=== PATIENT | male | born 1945 | race Caucasian/White ===

== ENCOUNTER 2017-01-30 06:44 | Inpatient (IN) | payer MEDICARE, OTHER ==
[2017-01-23 10:56] LABS: BASOPHILS 0.9 %; BASOPHILS ABSOLUTE 0.06 10/3/uL (0.0-0.16); EOSINOPHILS 4.1 %; EOSINOPHILS ABSOLUTE 0.27 10/3/uL (0.0-0.53); HEMATOCRIT 38.3 % (40.0-51.0); HEMOGLOBIN 12.7 g/dL (13.6-17.8); IMMATURE GRANULOCYTES 0.3 %; IMMATURE GRANULOCYTES ABSOLUTE 0.02 10/3/uL (0.0-0.11); LYMPHOCYTES 23.5 %; LYMPHOCYTES ABSOLUTE 1.55 10/3/uL (0.67-4.30); MEAN CORPUS HGB CONC 33.2 g/dL (32.0-36.0); MEAN CORPUSCULAR HEMOGLOB 29.1 pg (26.0-34.0); MEAN CORPUSCULAR VOLUME 87.8 fL (80-100); MEAN PLATELET VOLUME 9.4 fL (9.2-13.0); MONOCYTES 11.4 %; MONOCYTES ABSOLUTE 0.75 10/3/uL (0.21-1.20); NEUTROPHILS 59.8 %; NEUTROPHILS ABSOLUTE 3.94 10/3/uL (2.02-8.40); PLATELET COUNT 281 10/3/uL (150-400); RBC DISTRIBUTION WIDTH 14.1 % (12.0-16.0); RED CELL COUNT 4.36 10/6/uL (4.7-6.1); WHITE BLOOD CELLS 6.6 10/3/uL (4.5-10.5)
[2017-01-23 10:57] LABS: MANUAL DIFF NO %
[2017-01-23 11:02] LABS: INTERNATIONAL NORMAL RATI 1.1 UNITS (-); PARTIAL THROMBO TIME 30.5 SEC (22.5-37.2)
[2017-01-23 11:07] LABS: BUN (BLOOD UREA NITROGEN) 12 MG/DL (6-23); CALCIUM, SERUM 8.7 MG/DL (8.5-10.4); CHLORIDE, SERUM 108 MMOL/L (96-112); CO2 (CARBON DIOXIDE) 28 MMOL/L (24-34); CREATININE 1.33 MG/DL (0.70-1.30); GFR AFRICAN AMERICAN 62 ML/MIN (>=60); GFR NON AFRICAN AMERICAN 54 ML/MIN (>=60); GLUCOSE, SERUM 89 MG/DL (60-99); POTASSIUM, SERUM 3.5 MMOL/L (3.5-5.3); SODIUM, SERUM 143 MMOL/L (135-148)
[~2017-01-30] VITALS: Ht 170.2 cm; Wt 87.6 kg
--- NOTE | ~2017-01-30 | PREOPHP ---
PreOp History and Physical [facility] [id number] [place]. [address] NAME: MEL MINOR : 47 STATUS : ADM IN PAT#: [id number] AGE: 71 ADM/REG DATE : 01/30/17 MR#: [id number] REPORT SERV DATE: 01/30/17 DICTATED BY: MIKE NG DATE: 01/27/17 REPORT STATUS : Draft TRANSCRIBED BY: ESTEFANIA DATE: 01/27/17 CHIEF COMPLAINT: Adenocarcinoma of the prostate clinical stage T1c, Lisset score 4+3 equals 7, maximum PSA 8.9. HISTORY OF PRESENT ILLNESS: Mr. Minor is a 71-year-old male with recently diagnosed with adenocarcinoma of the prostate. An elevated PSA led to the biopsy. Biopsy revealed Packwood score of 4+3 from the right mid, right base, left base, right apex. Different treatment options regarding the management of prostate cancer were proposed to the patient. He decided to proceed with laparoscopic robot-assisted radical prostatectomy and bilateral pelvic node sampling. The patient had a CT scan of the abdomen and pelvis showing a questionably enlarged right external iliac lymph node. He has mild lower urinary tract symptoms, obstructive voiding symptoms, and erectile dysfunction. PAST MEDICAL HISTORY: Generally negative. PAST SURGICAL HISTORY: EGD with dilation of esophagus. FAMILY HISTORY: Negative for prostate cancer. MEDICATIONS: Tamsulosin. ALLERGIES: NO KNOWN DRUG ALLERGIES. SOCIAL HISTORY: He uses smokeless tobacco daily. He denies alcohol use. He denies drug use. REVIEW OF SYSTEMS: Has some obstructive voiding symptoms and erectile dysfunction. PHYSICAL EXAMINATION: GENERAL: Shows a well-developed, well-nourished white male, in no acute distress. He has a BMI of 29. VITAL SIGNS: He is afebrile. His vital signs are stable. HEENT: He has good cognitive function. His sclerae are anicteric. NECK: Supple. LUNGS: Clear. HEART: Regular rate and rhythm. ABDOMEN: Soft, nontender. No palpable abdominal masses. No inguinal hernia. GENITOURINARY: Penis normal. Testes descended. No testicular masses. Prostate is large but smooth. No nodules. EXTREMITIES: Lower extremities show no deformities. LYMPH: No enlarged lymph nodes palpable. IMPRESSION: Adenocarcinoma of the prostate, clinical stage T1c, Packwood score 4+3=7, maximum PSA of 8.9, questionable right external iliac lymph node enlargement. PLAN: Laparoscopic robot-assisted radical prostatectomy. Probably, sample the lymph nodes PreOp History and Physical [address] [address] NAME: MEL MINOR : 46 STATUS : ADM IN PAT#: [id number] AGE: 71 ADM/REG DATE : 01/30/17 MR#: [id number] REPORT SERV DATE: 01/30/17 DICTATED BY: MIKE NG DATE: 01/27/17 REPORT STATUS : Draft TRANSCRIBED BY: ESTEFANIA DATE: 01/27/17 first, and if they are positive, I have discussed this with the patient abandoning the prostatectomy in favor of other treatment modalities. If they are negative, then we will proceed with the prostatectomy. The patient consents to proceed. Potential complications of bleeding, infection, urinary incontinence, bladder neck obstruction, loss of ejaculate, erectile dysfunction, and injury to adjacent structures such as bladder, ureters, rectum, colon, intestine, nerves, as well as bowel obstruction complications have all been explained to the patient. He has both manually and verbally consented to proceed. BEAU/ESTEFANIA Mike Ng M.D. / [id number] CC: Mike Ng M.D.
--- NOTE | ~2017-01-30 | OP ---
Record Of Operation [facility] [address] [place]. [address] NAME: MEL MINOR : 47 STATUS : ADM IN PAT#: [id number] AGE: 71 ADM/REG DATE : 01/30/17 MR#: [id number] REPORT SERV DATE: 01/30/17 DICTATED BY: MIKE NG DATE: 01/30/17 REPORT STATUS : Draft TRANSCRIBED BY: MODL DATE: 01/30/17 DATE OF PROCEDURE: 01/30/2017 PREOPERATIVE DIAGNOSIS: Adenocarcinoma of the prostate, clinical stage T1c, [place] score 3+4=7, maximum PSA 8.9. POSTOPERATIVE DIAGNOSIS: Adenocarcinoma of the prostate, clinical stage T1c, Lisset score 3+4=7, maximum PSA 8.9. PROCEDURES: Laparoscopic robot-assisted radical prostatectomy, bilateral pelvic node sampling. ANESTHESIA: General. DONOR RELATIONS MANAGER: Bud Fisher. ESTIMATED BLOOD LOSS: 150 mL. FLUID REPLACEMENT: 3 L of crystalloid. DRAINS: 16-Panamanian Coude style catheter per urethra, with 12 mL of sterile water was inflated in the balloon, and a 15 mm Luis Armando drain in prevesical space. INDICATION: Cory is a 71-year-old male, recently diagnosed with prostate cancer. TECHNIQUE: The patient was identified, brought to the operating room, administered general anesthetic agent by the Anesthesia Service and intubated. He was positioned in dorsal lithotomy position. He was appropriately padded and secured to the table. The abdomen was previously been clipped. The entire abdomen, penis, groin, scrotum, perineum were prepped and draped in usual sterile fashion. I attempted to place a 16-Panamanian Ng catheter. I met resistance about the level of the bladder neck. I placed a 16-Panamanian coude style catheter, without difficulty. All laparoscopic port sites were first infiltrated with 0.5% Marcaine plain. A 3 cm skin incision was made above the umbilicus and carried down to the rectus fascia. Holding sutures were placed in the rectus fascia and a transverse incision was made. The underlying peritoneum was identified and opened sharply, and a balloon trocar was placed into the peritoneal space. A pneumoperitoneum was created by insufflating carbon dioxide. The abdominal pressure were raised to 15 mmHg and held there through the entire case until otherwise specified. The patient was placed in steep Trendelenburg. Three robot arm ports and two educational assistant teacher ports were placed under direct laparoscopic vision. There was adhesion between the cecum and the right lower quadrant abdominal wall. This was taken down sharply. The da Ke robot was brought to the table and mated to the ports. I took down some adhesions between the sigmoid colon and left pelvic sidewall. I then opened the cul-de-sac to expose the seminal structures. The left and right vasa deferentia Record Of Operation [facility] [address] [facility]. [address] NAME: MEL MINOR : 47 STATUS : ADM IN PAT#: [id number] AGE: 71 ADM/REG DATE : 01/30/17 MR#: [id number] REPORT SERV DATE: 01/30/17 DICTATED BY: MIKE NG DATE: 01/30/17 REPORT STATUS : Draft TRANSCRIBED BY: ESTEFANIA DATE: 01/30/17 were clipped proximally and transected distally. The left and right seminal vesicles were dissected out. Denonvilliers fascia was opened sharply and the rectum was swept off the undersurface of the prostate and toward the neurovascular bundles out to the apices bilaterally. I opened the peritoneum just lateral to the median umbilical ligaments on each side from the umbilicus down to the vasa deferentia. The obliterated umbilical ligaments and the umbilicus were divided near the umbilicus. The patient had enlarged right external iliac lymph nodes on a staging CT scan. I then performed a right external iliac and obturator lymph node dissection. Locking clips and metallic clips were used for lymphostasis and hemostasis. I collected the node packet and sent it off to Pathology. Frozen section analysis revealed no cancer in the node packet. I then continued on with the prostatectomy. The endopelvic fascia was pierced sharply at the prostatovesical junction. It is opened all the way out to the puboprostatic ligaments bilaterally. Attachments of the striated sphincter were taken off the apex of the prostate sharply. Dorsal venous complex was isolated and secured with laparoscopic CLAUDINE stapling device and oversewn with 3-0 PDS. The neurovascular bundles were mobilized off the apex of the prostate and carried posteriorly back to the posterior pedicles bilaterally. I switched to 30-degree down lens and developed a plane between the bladder neck the prostate. I opened the anterior bladder neck and elevated the Ng catheter. The patient had a large lobulated median lobe. It was carefully excised out at the inside the bladder, being careful to avoid the ureteral orifices. I then carried my dissection down and exposed the previously dissected out seminal structures. The posterior pedicles were secured with locking clips and divided. The prostate was now mobile all the way out to the apex. The last attachments of the striated sphincter were taken off the apex of the prostate. The urethra was divided sharply. The posterior striated sphincter was divided. The specimen was inspected, appeared intact, and placed in specimen retrieval bag, and held for later retrieval. I reconstruct the bladder neck with horizontal mattress sutures of 3-0 Monocryl at the 3 o'clock and 9 o'clock position. I then lowered the abdominal pressure down to 7 mmHg. Fastidious hemostasis was achieved. This pressure was kept down there for 20 minutes. I performed posterior reconstruction in two layers with 3-0 V-Loc. I then did a modified van Velthoven vesicourethral anastomosis with 3-0 V-Loc. When the anastomosis was completed, I pushed the 16-Panamanian Coude catheter all the way into the bladder. The bladder was filled with 240 mL of saline. There was some extravasation, but not from the anastomosis. The bladder was then drained and 12 mL of sterile water were inflated in catheter balloon. I then did a left pelvic lymph node dissection. The external iliac, obturator, and some of the internal iliac lymph nodes were sampled. Locking clips and metallic clips were used for lymphostasis and hemostasis. There was an arterial bleed that had to be clipped. Record Of Operation [facility] [id number] [facility]. [address] NAME: MEL MINOR : 47 STATUS : ADM IN PAT#: [id number] AGE: 71 ADM/REG DATE : 01/30/17 MR#: [id number] REPORT SERV DATE: 01/30/17 DICTATED BY: MIKE NG DATE: 01/30/17 REPORT STATUS : Draft TRANSCRIBED BY: MODL DATE: 01/30/17 I lowered the abdominal pressure one more time. I irrigated the pelvis copiously. Fastidious hemostasis was achieved. The instruments were taken out of the third robot arm port. A 15 mm Luis Armando drain was placed through that port and left in the prevesical space. The port was removed. The drain was sutured to skin with 2-0 Prolene. I undocked the da Ke robot. I transferred the string of the specimen bag out through the umbilical port. The educational assistant teacher 12 mm port was removed and the fascia there was closed with a Jarrett-Kay endoscopic closure system. The patient was taken out of Trendelenburg. All the ports were removed under low pressure. No port site bleeding was noted. I extended my fascial incision by 1 cm in each direction above the umbilicus. I then delivered the specimens out through the wound. I closed the fascia with [id number] Vicryl sutures. The subcutaneous tissue of all ports were irrigated copiously and the subcutaneous tissue of the larger ports were closed with 3-0 Vicryl. The skin of all ports were closed with 4-0 Monocryl. Dressings were applied. The catheter was secured. The patient was awakened and taken to the recovery unit in a stable and satisfactory condition. PF/MODL Mike Ng M.D. / [id number] CC: Mike Ng M.D.
[~2017-01-30 06:44] MED LIST: ENDOCET1 TA3 PO; FLOMAX4 PO; NAP500 PO
[2017-01-31 05:05] LABS: HEMOGLOBIN 11.2 g/dL (13.6-17.8)
[2017-01-31 05:06] LABS: HEMATOCRIT 33.5 % (40.0-51.0)
[2017-01-31 05:14] LABS: BUN (BLOOD UREA NITROGEN) 10 MG/DL (6-23); CALCIUM, SERUM 8.1 MG/DL (8.5-10.4); CHLORIDE, SERUM 108 MMOL/L (96-112); CO2 (CARBON DIOXIDE) 30 MMOL/L (24-34); CREATININE 1.32 MG/DL (0.70-1.30); GFR AFRICAN AMERICAN 63 ML/MIN (>=60); GFR NON AFRICAN AMERICAN 54 ML/MIN (>=60); POTASSIUM, SERUM 4.4 MMOL/L (3.5-5.3); SODIUM, SERUM 141 MMOL/L (135-148)
[2017-01-31 05:15] LABS: GLUCOSE, SERUM 116 MG/DL (60-99)
[2017-01-31] MEDS ORDERED: NORCO1 TA1 PO (07:55)
== END 2017-01-31 14:20 | disposition home or self-care (01) | DRG 708 ==
LOC: ENRESERVTM → ENRESERV → ENRESERVDT → 4SO 06:44 → SDC/OF 06:44 → PACU 12:24 → 4SO 15:30
PROVIDERS: Urology
PROC: 07BC4ZX Excision of Pelvis Lymphatic, Percutaneous Endoscopic Approach, Diagnostic (ICD-10-PCS; 2017-01-30)
PROC: 0VT04ZZ Resection of Prostate, Percutaneous Endoscopic Approach (ICD-10-PCS; principal; 2017-01-30 07:30)
DX: C61 Malignant neoplasm of prostate (principal); N18.9 Chronic kidney disease, unspecified
CPT/HCPCS: 80048; 82570; 83735; 85014; 85018; 85025; 85610; 85730; 88305; 88307; 88309; 88331; 88332; 93005; A9270-GY; J0330; J0690; J2250; J2270; J2405; J2550; J2710; J3010